=== PATIENT | male | born 1950 | race Caucasian/White ===

== ENCOUNTER → 2017-02-23 | Outpatient (CLI) | payer MEDICAID ==
[~2017-02-23] MED LIST: ATEN-104 PO; HYDR25TA11 PO; HYDR25TA6 PO; LEVO100T PO; LORA-446 PO; SULF1TAB24 PO
== END | disposition home or self-care (01) ==
LOC: WOUND 14:04
PROVIDERS: ATTEND Family Medicine
DX: T81.31XA Disruption of external operation (surgical) wound, not elsewhere classified, initial encounter (principal); I10 Essential (primary) hypertension; B35.1 Tinea unguium; M19.90 Unspecified osteoarthritis, unspecified site; Z89.421 Acquired absence of other right toe(s); Y83.8 Other surgical procedures as the cause of abnormal reaction of the patient, or of later complication, without mention of misadventure at the time of the procedure
CPT/HCPCS: 99215

== ENCOUNTER → 2017-03-02 | Outpatient (CLI) | payer MEDICAID | END | disposition home or self-care (01) | LOC: WOUND 14:04 | PROVIDERS: ATTEND Family Medicine | DX: T81.31XA Disruption of external operation (surgical) wound, not elsewhere classified, initial encounter (principal); E11.621 Type 2 diabetes mellitus with foot ulcer; L97.511 Non-pressure chronic ulcer of other part of right foot limited to breakdown of skin; I10 Essential (primary) hypertension; B35.1 Tinea unguium; M19.90 Unspecified osteoarthritis, unspecified site; Z89.421 Acquired absence of other right toe(s); Y83.8 Other surgical procedures as the cause of abnormal reaction of the patient, or of later complication, without mention of misadventure at the time of the procedure | CPT/HCPCS: 97597; 99215 ==

== ENCOUNTER → 2017-03-09 | Outpatient (CLI) | payer MEDICAID | END | disposition home or self-care (01) | LOC: WOUND 14:39 | PROVIDERS: ATTEND Family Medicine | DX: T81.31XD Disruption of external operation (surgical) wound, not elsewhere classified, subsequent encounter (principal); L97.511 Non-pressure chronic ulcer of other part of right foot limited to breakdown of skin; M19.90 Unspecified osteoarthritis, unspecified site; I10 Essential (primary) hypertension; B35.1 Tinea unguium; Z89.421 Acquired absence of other right toe(s); Y83.8 Other surgical procedures as the cause of abnormal reaction of the patient, or of later complication, without mention of misadventure at the time of the procedure | CPT/HCPCS: 97597 ==

== ENCOUNTER → 2017-03-16 | Outpatient (CLI) | payer MEDICAID | END | disposition home or self-care (01) | LOC: WOUND 15:02 | PROVIDERS: ATTEND Family Medicine | DX: T81.31XD Disruption of external operation (surgical) wound, not elsewhere classified, subsequent encounter (principal); E11.621 Type 2 diabetes mellitus with foot ulcer; L97.511 Non-pressure chronic ulcer of other part of right foot limited to breakdown of skin; B35.1 Tinea unguium; M19.90 Unspecified osteoarthritis, unspecified site; I10 Essential (primary) hypertension; Z89.421 Acquired absence of other right toe(s); Y83.8 Other surgical procedures as the cause of abnormal reaction of the patient, or of later complication, without mention of misadventure at the time of the procedure | CPT/HCPCS: 11042 ==

== ENCOUNTER → 2017-03-22 | Outpatient (CLI) | payer MEDICAID | END | disposition home or self-care (01) | LOC: CVU 13:44 | PROVIDERS: ATTEND Family Medicine | DX: L97.512 Non-pressure chronic ulcer of other part of right foot with fat layer exposed (principal); M86.171 Other acute osteomyelitis, right ankle and foot; M86.172 Other acute osteomyelitis, left ankle and foot; I83.93 Asymptomatic varicose veins of bilateral lower extremities; I10 Essential (primary) hypertension | CPT/HCPCS: 93922; 93925; 93970 ==

== ENCOUNTER → 2017-03-30 | Outpatient (CLI) | payer MEDICAID | END | disposition home or self-care (01) | LOC: WOUND 15:02 | PROVIDERS: ATTEND Family Medicine | DX: T81.31XD Disruption of external operation (surgical) wound, not elsewhere classified, subsequent encounter (principal); L97.511 Non-pressure chronic ulcer of other part of right foot limited to breakdown of skin; I10 Essential (primary) hypertension; B35.1 Tinea unguium; M86.172 Other acute osteomyelitis, left ankle and foot; M86.171 Other acute osteomyelitis, right ankle and foot; M19.90 Unspecified osteoarthritis, unspecified site; Z89.421 Acquired absence of other right toe(s); Y83.8 Other surgical procedures as the cause of abnormal reaction of the patient, or of later complication, without mention of misadventure at the time of the procedure | CPT/HCPCS: 97597 ==

== ENCOUNTER → 2017-04-13 | Outpatient (CLI) | payer MEDICAID | END | disposition home or self-care (01) | LOC: WOUND 14:08 | PROVIDERS: ATTEND Family Medicine | DX: T87.89 Other complications of amputation stump (principal); E11.621 Type 2 diabetes mellitus with foot ulcer; L97.511 Non-pressure chronic ulcer of other part of right foot limited to breakdown of skin; I10 Essential (primary) hypertension; B35.1 Tinea unguium; F41.9 Anxiety disorder, unspecified; E11.69 Type 2 diabetes mellitus with other specified complication; M86.172 Other acute osteomyelitis, left ankle and foot; M86.171 Other acute osteomyelitis, right ankle and foot; Z89.421 Acquired absence of other right toe(s); Y83.5 Amputation of limb(s) as the cause of abnormal reaction of the patient, or of later complication, without mention of misadventure at the time of the procedure | CPT/HCPCS: 97597; 99215 ==

== ENCOUNTER → 2017-04-27 | Outpatient (CLI) | payer MEDICAID | END | disposition home or self-care (01) | LOC: WOUND 14:05 | PROVIDERS: ATTEND Family Medicine | DX: T81.31XD Disruption of external operation (surgical) wound, not elsewhere classified, subsequent encounter (principal); E11.621 Type 2 diabetes mellitus with foot ulcer; L97.511 Non-pressure chronic ulcer of other part of right foot limited to breakdown of skin; I10 Essential (primary) hypertension; F41.9 Anxiety disorder, unspecified; E11.69 Type 2 diabetes mellitus with other specified complication; M86.172 Other acute osteomyelitis, left ankle and foot; M86.171 Other acute osteomyelitis, right ankle and foot; M19.90 Unspecified osteoarthritis, unspecified site; Z89.421 Acquired absence of other right toe(s); Y83.8 Other surgical procedures as the cause of abnormal reaction of the patient, or of later complication, without mention of misadventure at the time of the procedure | CPT/HCPCS: 99215 ==

== ENCOUNTER → 2017-09-03 | Outpatient (CLI) | payer MEDICAID | END | disposition home or self-care (01) | LOC: WOUND 11:00 | PROVIDERS: ATTEND Internal Medicine Cardiovascular Disease | DX: S81.801D Unspecified open wound, right lower leg, subsequent encounter (principal); I83.891 Varicose veins of right lower extremity with other complications; I87.2 Venous insufficiency (chronic) (peripheral); Z89.421 Acquired absence of other right toe(s); X58.XXXD Exposure to other specified factors, subsequent encounter | CPT/HCPCS: 36475 ==

== ENCOUNTER → 2017-09-05 | Outpatient (CLI) | payer MEDICAID | END | disposition home or self-care (01) | LOC: CVU 11:40 | PROVIDERS: ATTEND Internal Medicine Cardiovascular Disease | DX: I87.2 Venous insufficiency (chronic) (peripheral) (principal) | CPT/HCPCS: 93971 ==

== ENCOUNTER → 2017-11-05 | Outpatient (CLI) | payer MEDICAID | END | disposition home or self-care (01) | LOC: WOUND 09:47 | PROVIDERS: ATTEND Internal Medicine Cardiovascular Disease | DX: I83.12 Varicose veins of left lower extremity with inflammation (principal); I10 Essential (primary) hypertension; M19.90 Unspecified osteoarthritis, unspecified site; L03.031 Cellulitis of right toe; M79.674 Pain in right toe(s); Z87.891 Personal history of nicotine dependence | CPT/HCPCS: 36475 ==

== ENCOUNTER → 2017-11-06 | Outpatient (CLI) | payer MEDICAID | END | disposition home or self-care (01) | LOC: CVU 12:50 | PROVIDERS: ATTEND Internal Medicine Cardiovascular Disease | DX: I87.2 Venous insufficiency (chronic) (peripheral) (principal) | CPT/HCPCS: 93971 ==

== ENCOUNTER 2017-12-10 17:07 | Emergency (ER) | payer SELFPAY ==
[~2017-12-10] VITALS: Ht 172.7 cm; Wt 97.6 kg
[2017-12-10 17:55] LABS: BASOPHILS # (AUTO) 0.09 x10^3/uL (0-0.1); BASOPHILS % (AUTO) 1 % (0-1); EOSINOPHILS # (AUTO) 0.12 x10^3/uL (0-0.4); EOSINOPHILS % (AUTO) 1 % (1-7); LYMPHOCYTES # (AUTO) 1.58 x10^3/uL (1-3.4); LYMPHOCYTES % (AUTO) 14 % (22-44); MD NO; MEAN CORPUSCULAR HEMOGLOBIN 28.8 pg (27.5-34.5); MEAN CORPUSCULAR HGB CONC 33.9 g/dL (33.2-36.2); MONOCYTES # (AUTO) 0.61 x10^3/uL (0.2-0.8); MONOCYTES % (AUTO) 6 % (2-9); NEUTROPHILS # (AUTO) 8.68 x10^3/uL (1.8-6.8); NEUTROPHILS % (AUTO) 78 % (42-75); PLATELET COUNT 220 x10^3/uL (130-400); RED BLOOD COUNT 4.97 x10^6/uL (4.38-5.82); RED CELL DISTRIBUTION WIDTH 15.2 % (9.4-14.8)
[2017-12-10 18:04] LABS: ALBUMIN 3.3 g/dL (3.4-5.0); ANION GAP 5 mmol/L (5-15); CALCIUM 8.7 mg/dL (8.5-10.1); CHLORIDE 110 mmol/L (98-107); CREATININE 1.05 mg/dL (0.7-1.3)
[2017-12-10 19:54] VITALS: BP 181/100
== END 2017-12-10 19:57 | disposition home or self-care (01) ==
LOC: ED 19:09
DX: L03.031 Cellulitis of right toe (principal); Z87.891 Personal history of nicotine dependence; I10 Essential (primary) hypertension; M19.90 Unspecified osteoarthritis, unspecified site
CPT/HCPCS: 36415; 80048; 82040; 83605; 85025; 99285

== ENCOUNTER 2018-03-28 15:10 | Outpatient (CLI) | payer MEDICARE, OTHER | END 2018-03-28 23:59 | disposition home or self-care (01) | LOC: WOUND 15:10 | PROVIDERS: ATTEND Podiatrist Foot & Ankle Surgery | DX: E11.622 Type 2 diabetes mellitus with other skin ulcer (principal); L89.892 Pressure ulcer of other site, stage 2; L84 Corns and callosities; I10 Essential (primary) hypertension; M19.90 Unspecified osteoarthritis, unspecified site; G60.9 Hereditary and idiopathic neuropathy, unspecified; E03.9 Hypothyroidism, unspecified; Z89.421 Acquired absence of other right toe(s) | CPT/HCPCS: 97597; 99215 ==

== ENCOUNTER 2018-04-04 13:56 | Outpatient (CLI) | payer OTHER | END 2018-04-04 23:59 | disposition home or self-care (01) | LOC: WOUND 13:56 | PROVIDERS: ATTEND Podiatrist Foot & Ankle Surgery | DX: L97.512 Non-pressure chronic ulcer of other part of right foot with fat layer exposed (principal); L89.899 Pressure ulcer of other site, unspecified stage; S91.104A Unspecified open wound of right lesser toe(s) without damage to nail, initial encounter; M20.41 Other hammer toe(s) (acquired), right foot; G60.9 Hereditary and idiopathic neuropathy, unspecified; I10 Essential (primary) hypertension; E03.9 Hypothyroidism, unspecified; M19.90 Unspecified osteoarthritis, unspecified site; X58.XXXA Exposure to other specified factors, initial encounter; Y93.89 Activity, other specified; Y92.89 Other specified places as the place of occurrence of the external cause; Y99.8 Other external cause status | CPT/HCPCS: 11042 ==

== ENCOUNTER → 2018-04-11 | Outpatient (CLI) | payer OTHER | END | disposition home or self-care (01) | LOC: WOUND 13:37 | PROVIDERS: ATTEND Podiatrist Foot & Ankle Surgery | DX: E11.621 Type 2 diabetes mellitus with foot ulcer (principal); L97.512 Non-pressure chronic ulcer of other part of right foot with fat layer exposed; L84 Corns and callosities; I10 Essential (primary) hypertension; E03.9 Hypothyroidism, unspecified; M20.41 Other hammer toe(s) (acquired), right foot; G60.9 Hereditary and idiopathic neuropathy, unspecified; M19.90 Unspecified osteoarthritis, unspecified site | CPT/HCPCS: 11042 ==

== ENCOUNTER → 2018-04-25 | Outpatient (CLI) | payer OTHER | END | disposition home or self-care (01) | LOC: WOUND 14:09 | PROVIDERS: ATTEND Podiatrist Foot & Ankle Surgery | DX: E11.621 Type 2 diabetes mellitus with foot ulcer (principal); L89.893 Pressure ulcer of other site, stage 3; L97.511 Non-pressure chronic ulcer of other part of right foot limited to breakdown of skin; L84 Corns and callosities; I10 Essential (primary) hypertension; M20.41 Other hammer toe(s) (acquired), right foot; G60.9 Hereditary and idiopathic neuropathy, unspecified; E03.9 Hypothyroidism, unspecified; M19.90 Unspecified osteoarthritis, unspecified site | CPT/HCPCS: 97597 ==

== ENCOUNTER 2018-05-09 14:00 | Outpatient (CLI) | payer OTHER | END 2018-05-09 23:59 | disposition home or self-care (01) | LOC: WOUND 14:00 | PROVIDERS: ATTEND Podiatrist Foot & Ankle Surgery | DX: E11.621 Type 2 diabetes mellitus with foot ulcer (principal); L89.893 Pressure ulcer of other site, stage 3; L97.512 Non-pressure chronic ulcer of other part of right foot with fat layer exposed; L84 Corns and callosities; I10 Essential (primary) hypertension; E03.9 Hypothyroidism, unspecified; M20.41 Other hammer toe(s) (acquired), right foot; M19.90 Unspecified osteoarthritis, unspecified site; G60.9 Hereditary and idiopathic neuropathy, unspecified | CPT/HCPCS: 11042 ==

== ENCOUNTER 2018-05-16 14:37 | Outpatient (CLI) | payer OTHER | END 2018-05-16 23:59 | disposition home or self-care (01) | LOC: WOUND 14:37 | PROVIDERS: ATTEND Podiatrist Foot & Ankle Surgery | DX: E11.621 Type 2 diabetes mellitus with foot ulcer (principal); L89.893 Pressure ulcer of other site, stage 3; L97.512 Non-pressure chronic ulcer of other part of right foot with fat layer exposed; L84 Corns and callosities; E03.9 Hypothyroidism, unspecified; I10 Essential (primary) hypertension; M20.41 Other hammer toe(s) (acquired), right foot; M19.90 Unspecified osteoarthritis, unspecified site; G60.9 Hereditary and idiopathic neuropathy, unspecified | CPT/HCPCS: 11042; 97597 ==

== ENCOUNTER → 2018-05-23 | Outpatient (CLI) | payer OTHER | END | disposition home or self-care (01) | LOC: WOUND 15:02 | PROVIDERS: ATTEND Podiatrist Foot & Ankle Surgery | DX: E11.621 Type 2 diabetes mellitus with foot ulcer (principal); L89.893 Pressure ulcer of other site, stage 3; L97.512 Non-pressure chronic ulcer of other part of right foot with fat layer exposed; L84 Corns and callosities; E03.9 Hypothyroidism, unspecified; I10 Essential (primary) hypertension; M19.90 Unspecified osteoarthritis, unspecified site; M20.41 Other hammer toe(s) (acquired), right foot; G60.9 Hereditary and idiopathic neuropathy, unspecified | CPT/HCPCS: 11042 ==

== ENCOUNTER → 2018-06-06 | Outpatient (CLI) | payer MEDICARE, OTHER | END | disposition home or self-care (01) | LOC: WOUND 14:01 | PROVIDERS: ATTEND Podiatrist Foot & Ankle Surgery | DX: E11.621 Type 2 diabetes mellitus with foot ulcer (principal); L89.893 Pressure ulcer of other site, stage 3; L97.512 Non-pressure chronic ulcer of other part of right foot with fat layer exposed; M20.41 Other hammer toe(s) (acquired), right foot; L84 Corns and callosities; E03.9 Hypothyroidism, unspecified; I10 Essential (primary) hypertension; M19.90 Unspecified osteoarthritis, unspecified site; G60.9 Hereditary and idiopathic neuropathy, unspecified | CPT/HCPCS: 11042 ==

== ENCOUNTER → 2018-06-13 | Outpatient (CLI) | payer MEDICARE | END | disposition home or self-care (01) | LOC: WOUND 14:39 | PROVIDERS: ATTEND Podiatrist Foot & Ankle Surgery | DX: E11.621 Type 2 diabetes mellitus with foot ulcer (principal); L89.893 Pressure ulcer of other site, stage 3; L97.512 Non-pressure chronic ulcer of other part of right foot with fat layer exposed; M20.41 Other hammer toe(s) (acquired), right foot; L84 Corns and callosities; E03.9 Hypothyroidism, unspecified; I10 Essential (primary) hypertension; M19.90 Unspecified osteoarthritis, unspecified site; G60.9 Hereditary and idiopathic neuropathy, unspecified; Z89.421 Acquired absence of other right toe(s) | CPT/HCPCS: 11042 ==

== ENCOUNTER → 2018-06-27 | Outpatient (CLI) | payer MEDICARE | END | disposition home or self-care (01) | LOC: WOUND 14:27 | PROVIDERS: ATTEND Podiatrist Foot & Ankle Surgery | DX: E11.621 Type 2 diabetes mellitus with foot ulcer (principal); L89.893 Pressure ulcer of other site, stage 3; L97.512 Non-pressure chronic ulcer of other part of right foot with fat layer exposed; M20.41 Other hammer toe(s) (acquired), right foot; L84 Corns and callosities; E03.9 Hypothyroidism, unspecified; I10 Essential (primary) hypertension; M19.90 Unspecified osteoarthritis, unspecified site; G60.9 Hereditary and idiopathic neuropathy, unspecified; Z89.421 Acquired absence of other right toe(s) | CPT/HCPCS: 11042; 97597 ==

== ENCOUNTER → 2018-07-11 | Outpatient (CLI) | payer MEDICARE | END | disposition home or self-care (01) | LOC: WOUND 14:29 | PROVIDERS: ATTEND Podiatrist Foot & Ankle Surgery | DX: E11.621 Type 2 diabetes mellitus with foot ulcer (principal); L89.893 Pressure ulcer of other site, stage 3; L97.512 Non-pressure chronic ulcer of other part of right foot with fat layer exposed; L97.521 Non-pressure chronic ulcer of other part of left foot limited to breakdown of skin; M20.41 Other hammer toe(s) (acquired), right foot; L84 Corns and callosities; E03.9 Hypothyroidism, unspecified; I10 Essential (primary) hypertension; M19.90 Unspecified osteoarthritis, unspecified site; G60.9 Hereditary and idiopathic neuropathy, unspecified; Z89.421 Acquired absence of other right toe(s) | CPT/HCPCS: 11042; 97597 ==

== ENCOUNTER → 2018-09-05 | Outpatient (CLI) | payer MEDICARE | END | disposition home or self-care (01) | LOC: WOUND 14:36 | PROVIDERS: ATTEND Podiatrist Foot & Ankle Surgery | DX: E11.621 Type 2 diabetes mellitus with foot ulcer (principal); L89.894 Pressure ulcer of other site, stage 4; L97.512 Non-pressure chronic ulcer of other part of right foot with fat layer exposed; L97.521 Non-pressure chronic ulcer of other part of left foot limited to breakdown of skin; M20.41 Other hammer toe(s) (acquired), right foot; L84 Corns and callosities; E03.9 Hypothyroidism, unspecified; I10 Essential (primary) hypertension; M19.90 Unspecified osteoarthritis, unspecified site; G60.9 Hereditary and idiopathic neuropathy, unspecified; Z89.421 Acquired absence of other right toe(s) | CPT/HCPCS: 11042; 11043; 87070; 87077; 87186; 87205 ==

== ENCOUNTER → 2018-09-12 | Outpatient (CLI) | payer MEDICARE | END | disposition home or self-care (01) | LOC: WOUND 13:39 | PROVIDERS: ATTEND Podiatrist Foot & Ankle Surgery | DX: E11.621 Type 2 diabetes mellitus with foot ulcer (principal); L97.513 Non-pressure chronic ulcer of other part of right foot with necrosis of muscle; L97.522 Non-pressure chronic ulcer of other part of left foot with fat layer exposed; L89.894 Pressure ulcer of other site, stage 4; L03.115 Cellulitis of right lower limb; E11.69 Type 2 diabetes mellitus with other specified complication; M86.171 Other acute osteomyelitis, right ankle and foot; E11.40 Type 2 diabetes mellitus with diabetic neuropathy, unspecified; M20.41 Other hammer toe(s) (acquired), right foot; L84 Corns and callosities; E03.9 Hypothyroidism, unspecified; I10 Essential (primary) hypertension; M19.90 Unspecified osteoarthritis, unspecified site; G60.9 Hereditary and idiopathic neuropathy, unspecified | CPT/HCPCS: 11042; 11043; 97597 ==

== ENCOUNTER → 2018-09-20 | Outpatient (CLI) | payer MEDICARE | END | disposition home or self-care (01) | LOC: CVU 12:38 | PROVIDERS: ATTEND Orthopaedic Surgery | DX: I70.293 Other atherosclerosis of native arteries of extremities, bilateral legs (principal); M86.272 Subacute osteomyelitis, left ankle and foot; M86.271 Subacute osteomyelitis, right ankle and foot; I10 Essential (primary) hypertension; Z87.891 Personal history of nicotine dependence | CPT/HCPCS: 93922; 93925 ==

== ENCOUNTER 2018-09-25 09:08 | Day surgery (SDC) | payer MEDICARE ==
[~2018-09-25] VITALS: Ht 177.8 cm; Wt 98.5 kg
[2018-09-25 09:56] VITALS: BP 135/92
[2018-09-25] MEDS ORDERED: LACTATED RINGERS 1,000 ML IV SCH (10:01)
[2018-09-25 10:49] LABS: ANION GAP 6 mmol/L (5-15); CALCIUM 9.2 mg/dL (8.5-10.1); CHLORIDE 106 mmol/L (98-107)
[2018-09-25 10:50] LABS: CREATININE 1.17 mg/dL (0.7-1.3)
[2018-09-25] MEDS ORDERED: FENTANYL PF 250 MCG/5ML ONE (11:34)
[2018-09-25] MEDS ORDERED: MIDAZOLAM 1 MG/ML, 2ML ONE (11:34)
[2018-09-25] MEDS ORDERED: ONDANSETRON 2MG/ML, 2ML ONE (14:13)
[2018-09-25] MEDS ORDERED: CEFAZOLIN 1,000 MG ONE (14:13)
[2018-09-25] MEDS ORDERED: PROPOFOL 10 MG/ML, 20ML ONE (15:45)
[2018-09-25] MEDS ORDERED: DEXAMETHASONE 4 MG/ML, 1ML ONE (15:45)
[2018-09-25] MEDS ORDERED: PROMETHAZINE 25 MG/ML, 1ML IV PRN (16:00)
[2018-09-25] MEDS ORDERED: OXYcodone 5 MG/5 ML ORAL.SOL UDC PO PRN ×3 (16:00→17:30)
[2018-09-25] MEDS ORDERED: ACETAMINOPHEN 325 MG TABLET PO PRN ×3 (16:00→17:30)
[2018-09-25] MEDS ORDERED: HYDROmorphone 2 MG/ML, 1ML IVPush PRN (16:00)
[2018-09-25] MEDS ORDERED: ONDANSETRON 2MG/ML, 2ML IV PRN ×2 (16:00→17:30)
[2018-09-25] MEDS ORDERED: MEPERIDINE/PF 25MG/0.5ML IVPush PRN (16:00)
[2018-09-25] MEDS ORDERED: FENTANYL PF 100 MCG/2ML IV PRN (16:00)
[2018-09-25] MEDS ORDERED: hydrALAzine 20 MG/ML, 1ML IV PRN (16:00)
[2018-09-25] MEDS ORDERED: LABETALOL 5MG/ML, 20ML IV PRN (16:00)
[2018-09-25] MEDS ORDERED: ACETAMINOPHEN 650 MG/20.3 ML UDC ONE (16:39)
[2018-09-25] MEDS ORDERED: OXYcodone 5 MG/5 ML ORAL.SOL UDC ONE (16:39)
[2018-09-25] MEDS ORDERED: morphine SULFATE 10 MG/ML, 1ML IV PRN (17:30)
[2018-09-25] MEDS ORDERED: HYDROcodone/APAP 5/325 TABLET PO PRN (17:30)
[2018-09-25] MEDS ORDERED: PROMETHAZINE 25 MG/ML, 1ML IM PRN (17:30)
[2018-09-25] MEDS: KETOROLAC 30 MG/1 ML IV SCH (18:38)
[2018-09-25 19:01] VITALS: BP 144/87
[2018-09-25] MEDS: DOCUSATE 100 MG CAPSULE PO SCH (20:27)
[2018-09-25] MEDS: CEFAZOLIN PMX 2GM/50ML 50 ML IVPB SCH (23:11)
[2018-09-26 00:15] VITALS: BP 154/78
[2018-09-26] MEDS: KETOROLAC 30 MG/1 ML IV SCH ×2 (01:24→09:17)
[2018-09-26 03:32] VITALS: BP 122/84
[2018-09-26 07:00] VITALS: BP 142/78
[2018-09-26] MEDS: CEFAZOLIN PMX 2GM/50ML 50 ML IVPB SCH (08:28)
[2018-09-26] MEDS: DOCUSATE 100 MG CAPSULE PO SCH (09:00)
== END 2018-09-26 09:25 | disposition home or self-care (01) ==
LOC: OR 09:08 → 4NOR 17:15 → UNDOADMOB 17:29 → 4NOR 17:29 → OR 17:29 → 4NOR 18:00 → UNDOADMOB 18:00 → OR 09-26 09:25 → UNDODISOB 09-26 09:25
PROVIDERS: ATTEND Orthopaedic Surgery
DX: M86.171 Other acute osteomyelitis, right ankle and foot (principal); M86.172 Other acute osteomyelitis, left ankle and foot; I10 Essential (primary) hypertension; Z88.5 Allergy status to narcotic agent; Z88.8 Allergy status to other drugs, medicaments and biological substances; Z89.421 Acquired absence of other right toe(s)
CPT/HCPCS: 28820; 28825; 36415; 80048; 87070; 87205; 88305; 88311; 93005; 96365; 96366; 96375; 96376; J0690; J1100; J1885; J2250; J2405; J2704; J3010; J7120; G0378

== ENCOUNTER 2018-10-10 14:39 | Outpatient (CLI) | payer MEDICARE | END 2018-10-10 23:59 | disposition home or self-care (01) | LOC: WOUND 14:39 | PROVIDERS: ATTEND Podiatrist Foot & Ankle Surgery | DX: E11.621 Type 2 diabetes mellitus with foot ulcer (principal); L97.513 Non-pressure chronic ulcer of other part of right foot with necrosis of muscle; L97.528 Non-pressure chronic ulcer of other part of left foot with other specified severity; L89.894 Pressure ulcer of other site, stage 4; L03.115 Cellulitis of right lower limb; E11.69 Type 2 diabetes mellitus with other specified complication; M86.171 Other acute osteomyelitis, right ankle and foot; E11.40 Type 2 diabetes mellitus with diabetic neuropathy, unspecified; M20.41 Other hammer toe(s) (acquired), right foot; L84 Corns and callosities; E03.9 Hypothyroidism, unspecified; I10 Essential (primary) hypertension; M19.90 Unspecified osteoarthritis, unspecified site; G60.9 Hereditary and idiopathic neuropathy, unspecified | CPT/HCPCS: G0463 ==

== ENCOUNTER 2018-10-19 16:47 | Emergency (ER) | payer MEDICARE ==
[~2018-10-19] VITALS: Ht 177.8 cm; Wt 98.1 kg
[2018-10-19 16:49] VITALS: BP 144/84
== END 2018-10-19 17:13 | disposition home or self-care (01) ==
LOC: ED 17:07
DX: L03.032 Cellulitis of left toe (principal); L03.031 Cellulitis of right toe; E11.9 Type 2 diabetes mellitus without complications; I10 Essential (primary) hypertension
CPT/HCPCS: 99283

== ENCOUNTER 2018-10-31 14:37 | Outpatient (CLI) | payer MEDICARE | END 2018-10-31 23:59 | disposition home or self-care (01) | LOC: WOUND 14:37 | PROVIDERS: ATTEND Podiatrist Foot & Ankle Surgery | DX: E11.621 Type 2 diabetes mellitus with foot ulcer (principal); L97.513 Non-pressure chronic ulcer of other part of right foot with necrosis of muscle; L97.528 Non-pressure chronic ulcer of other part of left foot with other specified severity; L89.894 Pressure ulcer of other site, stage 4; L03.115 Cellulitis of right lower limb; E11.69 Type 2 diabetes mellitus with other specified complication; M86.171 Other acute osteomyelitis, right ankle and foot; E11.40 Type 2 diabetes mellitus with diabetic neuropathy, unspecified; M20.41 Other hammer toe(s) (acquired), right foot; L84 Corns and callosities; E03.9 Hypothyroidism, unspecified; I10 Essential (primary) hypertension; M19.90 Unspecified osteoarthritis, unspecified site; G60.9 Hereditary and idiopathic neuropathy, unspecified | CPT/HCPCS: 11042; 97597 ==

== ENCOUNTER 2018-11-07 14:30 | Outpatient (CLI) | payer MEDICARE | END 2018-11-07 23:59 | disposition home or self-care (01) | LOC: WOUND 14:30 | PROVIDERS: ATTEND Podiatrist Foot & Ankle Surgery | DX: E11.621 Type 2 diabetes mellitus with foot ulcer (principal); L97.513 Non-pressure chronic ulcer of other part of right foot with necrosis of muscle; L97.528 Non-pressure chronic ulcer of other part of left foot with other specified severity; L89.894 Pressure ulcer of other site, stage 4; L03.115 Cellulitis of right lower limb; E11.69 Type 2 diabetes mellitus with other specified complication; M86.171 Other acute osteomyelitis, right ankle and foot; E11.40 Type 2 diabetes mellitus with diabetic neuropathy, unspecified; M20.41 Other hammer toe(s) (acquired), right foot; L84 Corns and callosities; E03.9 Hypothyroidism, unspecified; I10 Essential (primary) hypertension; M19.90 Unspecified osteoarthritis, unspecified site; G60.9 Hereditary and idiopathic neuropathy, unspecified | CPT/HCPCS: 97597 ==